=== PATIENT | female | born 2000 | race Caucasian/White ===

== ENCOUNTER → 2021-01-05 | Outpatient (CLI) | payer BC ==
--- NOTE | 2021-01-05 17:52 | Diagnostic Imaging Report ---
PROCEDURE: MRI right joint upper extremity without contrast. TECHNIQUE: Multiplanar, multisequence non contrast-enhanced MRI of the right upper extremity was accomplished. INDICATION: Medial and lateral right elbow pain, injury while throwing four weeks ago. COMPARISON: None. FINDINGS: No acute fracture or dislocation is seen in the right elbow. Alignment appears normal. No joint effusion is seen. No focal osseous lesions are identified. The ulnar collateral ligament is intact. The radial collateral ligamentous complex is intact. The origins of the common extensor and common flexor tendons appear intact. The distal brachialis and biceps tendons are intact. The distal triceps tendon appears intact. No focal muscular atrophy is seen. There is mild focal increased signal of the ulnar nerve with no change in caliber just proximal to the cubital tunnel. The nerve appears normal in course. The median nerve appears normal. No soft tissue masses or fluid collections are seen. There is mild medial subcutaneous edema. IMPRESSION: 1. No ligament or tendon tear is seen in the right elbow. No acute osseous abnormality is seen. 2. Mild increased signal in the ulnar nerve, please correlate with any findings of neuropathy. 3. Mild medial subcutaneous edema. Dictated by: Dictated on workstation # [id number]
== END ==
LOC: RAD 15:39
PROVIDERS: ATTEND Nurse Practitioner Family
DX: M25.521 Pain in right elbow (principal); R60.9 Edema, unspecified
CPT/HCPCS: 73221